=== PATIENT | female | born 1960 | race Caucasian/White ===

== ENCOUNTER 2016-10-11 13:12 | Emergency (ER) | payer MEDICARE ==
[2014-08-04 21:24] VITALS: BMI 39.4
[~2016-10-11 13:12] MED LIST: CELEXA20 MG PO; FLUTICASONE PRO16 GM NS; HYDROCODON-ACE1 EAC7 PO; HYDROXYZINE HCL50 MG PO; INVEGA 3 MG ER T3 MG PO; LASIX20 MG PO; LEXAPRO20 MG PO; METHOTREXATE2.5 MG PO; NEXIUM40 MG PO; PROAIR HFA8.5 GM INH; RESTORIL15 MG PO; SYNALAR 0.01 %60 ML TP; TOPROL XL25 MG PO
[2016-10-11 14:13] LABS: UDS - AMPHET NEGATIVE QUAL (NEGATIVE); UDS - BARB NEGATIVE QUAL (NEGATIVE); UDS - BENZO NEGATIVE QUAL (NEGATIVE); UDS - COCAINE NEGATIVE QUAL (NEGATIVE); UDS - METH NEGATIVE QUAL (NEGATIVE); UDS - OPIATE NEGATIVE QUAL (NEGATIVE); UDS - PCP NEGATIVE QUAL (NEGATIVE); UDS - THC POSITIVE QUAL (NEGATIVE)
[2016-10-11 14:17] LABS: ALBUMIN 3.1 g/dL (3.4-5.0); ALKALINE PHOSPHATASE 54 U/L (46-116); ALT (SGPT) 33 U/L (10-68); CALC OSMOLALITY 278 mosm/kg (275-300); CALCIUM 7.3 mg/dL (8.5-10.1); CARBON DIOXIDE 25.9 mmol/L (21.0-32.0); CHLORIDE - SERUM 105 mmol/L (98-107); CREATININE - SERUM 0.4 mg/dL (0.6-1.3); GLUCOSE 83 mg/dL (74-106); POTASSIUM - SERUM 4.1 mmol/L (3.5-5.1); PROTEIN - SERUM 4.5 g/dL (6.4-8.2); SODIUM 140 mmol/L (136-145); UREA NITROGEN 15 mg/dL (7-18); eGFR NON AFRICAN AMERICAN > 90 mL/min (90-120)
[2016-10-11 18:18] LABS: BASOPHILS 0.7 % (0.0-2.0); EOSINOPHILS 2.3 % (0-7); HEMATOCRIT 38.7 % (36.0-48.0); HEMOGLOBIN 12.3 g/dL (12-16); IMMATURE GRANULOCYTES 0.2 % (0-5); LYMPHOCYTES 47.3 % (15-50); MCH 31.1 pg (26.0-34.0); MCHC 31.8 g/dL (31.0-37.0); MCV 97.7 fL (80.0-100.0); MEAN PLATELET VOLUME 11.8 fL (7.4-10.4); MONOCYTES 7.4 % (2-11); NEUTROPHILS 42.1 % (40-80); PLATELET COUNT 239 10x3/uL (130-400); RBC 3.96 10x6/uL (4.00-5.40); WBC 5.7 10x3/uL (4.8-10.8)
[2016-10-11 18:50] LABS: APPEARANCE CLEAR (CLEAR); BILIRUBIN NEGATIVE (NEGATIVE); COLOR YELLOW (YELLOW); GLUCOSE NEGATIVE (NEGATIVE); KETONE NEGATIVE (NEGATIVE); LEUKOCYTE ESTERASE 1+ (NEGATIVE); NITRITE NEGATIVE (NEGATIVE); PROTEIN NEGATIVE (NEGATIVE); UROBILINOGEN NORMAL (NORMAL)
[2016-10-11 18:52] LABS: BACTERIA MODERATE /hpf (NONE SEEN); MUCUS <1+ /lpf (NONE SEEN); RED CELLS - URINE OCC /hpf (0-5); WHITE CELLS - URINE 0-5 /hpf (0-5)
[2016-10-11 20:00] LABS: HCG URINE NEGATIVE (NEGATIVE)
== END 2016-10-11 21:20 | disposition home or self-care (01) ==
LOC: D.ER 13:12
PROVIDERS: Emergency Medicine
DX: F22 Delusional disorders (principal); F12.10 Cannabis abuse, uncomplicated

== ENCOUNTER 2017-01-05 15:49 | Emergency (ER) | payer MEDICARE ==
[2014-08-04 21:24] VITALS: BMI 39.4
[2017-01-05 16:26] LABS: UDS - AMPHET NEGATIVE QUAL (NEGATIVE); UDS - BARB NEGATIVE QUAL (NEGATIVE); UDS - BENZO NEGATIVE QUAL (NEGATIVE); UDS - COCAINE NEGATIVE QUAL (NEGATIVE); UDS - METH NEGATIVE QUAL (NEGATIVE); UDS - OPIATE NEGATIVE QUAL (NEGATIVE); UDS - PCP NEGATIVE QUAL (NEGATIVE); UDS - THC POSITIVE QUAL (NEGATIVE)
== END 2017-01-05 17:44 | disposition home or self-care (01) ==
LOC: D.ER 15:49
PROVIDERS: Emergency Medicine
DX: F12.10 Cannabis abuse, uncomplicated (principal); F20.9 Schizophrenia, unspecified

== ENCOUNTER 2017-05-19 16:05 | Emergency (ER) | payer MEDICARE ==
[2014-08-04 21:24] VITALS: BMI 39.4
== END 2017-05-19 16:58 | disposition home or self-care (01) ==
LOC: D.ER 16:05
DX: B37.89 Other sites of candidiasis (principal); K92.1 Melena; F17.200 Nicotine dependence, unspecified, uncomplicated

== ENCOUNTER → 2017-05-23 | Emergency (ER) | payer MEDICARE ==
[2014-08-04 21:24] VITALS: BMI 39.4
== END | disposition home or self-care (01) ==
LOC: D.ER 02:23
DX: Z02.9 Encounter for administrative examinations, unspecified (principal)